=== PATIENT | male | born 1985 | race Caucasian/White ===

== ENCOUNTER 2018-05-31 14:02 | Emergency (ER) | payer SELFPAY ==
[~2018-05-31] VITALS: Ht 182.9 cm; Wt 95.3 kg
[2018-05-31 14:02] VITALS: BP 144/108
[2018-05-31] MEDS ORDERED: TRAM-48 PO ×2 (14:27→14:40)
[2018-05-31] MEDS ORDERED: AMOX500C PO ×2 (14:27→14:40)
--- NOTE | 2018-05-31 14:27 | PHYS DOC ---
Past History Past Medical History: No Pertinent History, Diabetes Past Surgical History: Other Smoking: Non-smoker Alcohol Use: None Drug Use: None Adult General Chief Complaint Chief Complaint: DENTAL PROBLEM HPI HPI Patient is a 32 year old male who presents with in of tooth pain. Patient states he had broken left lower tooth several days ago and complaining of severe pain in lower and upper jaw since yesterday that did not get better with Tylenol and ibuprofen. Patient denies fever and chills, nausea and vomiting, smoking. Patient states he has appointment with his dentist next week but could not wait because of pain. Review of Systems Review of Systems Constitutional: Denies fever or chills [] Eyes: Denies change in visual acuity, redness, or eye pain [] HENT: Denies nasal congestion or sore throat, reports tooth pain [] Respiratory: Denies cough or shortness of breath [] Cardiovascular: No additional information not addressed in HPI [] GI: Denies abdominal pain, nausea, vomiting, bloody stools or diarrhea [] : Denies dysuria or hematuria [] Musculoskeletal: Denies back pain or joint pain [] Integument: Denies rash or skin lesions [] Neurologic: Denies headache, focal weakness or sensory changes [] Endocrine: Denies polyuria or polydipsia [] All other systems were reviewed and found to be within normal limits, except as documented in this note. Allergies Allergies Allergies Coded Allergies Type Severity Reaction Last Updated Verified No Known Drug Allergies 05/31/18 No Physical Exam Physical Exam Constitutional: Well developed, well nourished, mild distress, non-toxic appearance. [] HENT: Normocephalic, atraumatic, bilateral external ears normal, oropharynx moist, no oral exudates, nose normal, several dental carries, tooth #18 with tenderness and large cavity and edema of gum. [] Eyes: PERRLA, EOMI, conjunctiva normal, no discharge. [] Neck: Normal range of motion, no tenderness, supple, no stridor. [] Cardiovascular:Heart rate regular rhythm, no murmur [] Lungs & Thorax: Bilateral breath sounds clear to auscultation [] Extremities: No tenderness, no cyanosis, no clubbing, ROM intact, no edema. [] Neurologic: Alert and oriented X 3, normal motor function, normal sensory function, no focal deficits noted. [] Psychologic: Affect normal, judgement normal, mood normal. [] Current Patient Data Vital Signs Vital Signs Date Time Temp Pulse Resp B/P (MAP) Pulse Ox O2 Delivery O2 Flow Rate FiO2 05/31/18 14:02 97.8 108 20 97 Room Air EKG EKG [] Radiology/Procedures Radiology/Procedures [] Course & Med Decision Making Course & Med Decision Making discharge: I've spoken with the patient and/or caregivers. I've explained the patient's condition, diagnosis and treatment plan based on information available to me at this time. I've answered the patient's and/or caregivers questions and addressed any concerns. The patient and/or caregivers have a good understanding the patient's diagnosis, condition and treatment plan as can be expected at this point. Vital signs have been stabilized. The patient's condition is stable for discharge from the emergency department. The patient will pursue further outpatient evaluation with her primary care provider or other designated consulting physician as outlined in the discharge instructions. Patient and/or caregivers are agreeable to this plan of care and follow-up instructions have been explained in detail. The patient and/or caregivers have received these instructions in written format and expressed understanding of these discharge instructions. The patient and her caregivers are aware that if any significant change in condition or worsening of symptoms should prompt him to immediately return to this of the closest emergency department. If an emergent department is not readily available I would encourage him to call 911. Jorge Disclaimer Dragon Disclaimer This electronic medical record was generated, in whole or in part, using a voice recognition dictation system. Departure Departure: Impression: Primary Impression: Dentalgia Disposition: HOME, SELF-CARE (at 1440) Condition: STABLE Referrals: PCP,NO (PCP) Patient Instructions: Dental Abscess, Toothache-Brief Additional Instructions: Drink plenty of liquids Follow-up with your dentist as scheduled in 2 days Return to ER if not getting better Scripts Tramadol Hcl (ULTRAM) 50 Mg Tablet 50 MG PO PRN Q6HRS PRN for PAIN, #20 TAB Prov: ONIEL COVARRUBIAS MD 05/31/18 Amoxicillin (AMOXICILLIN) 500 Mg Capsule 1 CAP PO TID for URI, #30 CAP Prov: ONIEL COVARRUBIAS MD 05/31/18 ONIEL COVARRUBIAS MD May 31, 2018 14:27
[2018-05-31] MEDS ORDERED: KETOROLAC 60 MG/2 ML VIAL. IM ONE (14:30)
== END 2018-05-31 14:54 | disposition home or self-care (01) ==
LOC: ER 14:02
DX: K08.89 Other specified disorders of teeth and supporting structures (principal); R68.84 Jaw pain; E11.9 Type 2 diabetes mellitus without complications
CPT/HCPCS: 96372; 99283; J1885